=== PATIENT | female | born 2000 | race American Indian/Alaskan Native ===

== ENCOUNTER 2019-03-29 19:56 | Emergency (ER) | payer SELFPAY ==
[2019-03-29 21:18] LABS: HCG Qualitative,Urine Positive (Negative)
[2019-03-29 21:23] LABS: Bacteria,Urine 2+ /HPF (Negative); Bilirubin,Urine NEG (Negative); Blood,Urine NEG (Negative); Color,Urine Yellow (Yellow); Mucus,Urine 3+ /HPF; Protein,Urine <15 mg/dL mg/dL (Negative); Urobilinogen,Urine < 2.0 mg/dL (<2.0)
[2019-03-29 22:00] LABS: Basophils # (Auto) 0.1 K/mm3 (0.0-0.1); Basophils % (Auto) 0.9 % (0.0-1.8); Eosinophils # (Auto) 0.1 K/mm3 (0.0-0.4); Eosinophils % (Auto) 0.5 % (0.0-4.3); Hematocrit 39.1 % (30.3-42.9); Hemoglobin 12.5 gm/dl (10.1-14.3); Lymphocytes # (Auto) 3.2 K/mm3 (1.2-5.4); Lymphocytes % (Auto) 29.1 % (13.4-35.0); Mean Corpuscular HGB Conc 32 % (30-34); Mean Corpuscular Volume 85 fl (79-97); Monocytes # (Auto) 0.8 K/mm3 (0.0-0.8); Monocytes % (Auto) 7.4 % (0.0-7.3); Platelet Count 273 K/mm3 (140-440); Red Cell Distribution Width 13.9 % (13.2-15.2)
[2019-03-29 22:26] LABS: Alanine Aminotransferase 7 units/L (7-56); BUN/Creatinine Ratio 12; Blood Urea Nitrogen 11 mg/dL (7-17); Calcium 8.8 mg/dL (8.4-10.2); Hemolysis Index 3
--- NOTE | 2019-03-30 00:30 | Emergency Department Report ---
ED Female HPI - General Chief complaint: Abdominal Pain Stated complaint: ABD PAIN/DIARRHEA Time Seen by Provider: 03/30/19 00:15 Source: patient Mode of arrival: Ambulatory Limitations: No Limitations - History of Present Illness Initial comments: 18-year-old -Mong[place]ian female presents to the emergency room for lower abdominal pain 1 month. Patient admits to diarrhea admits to vaginal discharge and abdominal cramping. Patient reports her last menstrual. 02/19/2019. Patient does admit to having unprotected intercourse. Patient does not have a primary care provider. Denies any fever or chills or nausea no vomiting no shortness of breath no chest pain. She does not have a primary care provider. MD Complaint: vaginal discharge, pelvic pain Onset/Timin -: month(s) Location: suprapubic Radiation: non-radiating Severity: severe Quality: cramping Consistency: intermittent Improves with: none Worsens with: none Are you Now?: No Last Menstrual Period: 02/19/19 EDC: 11/26/19 Associated Symptoms: vaginal discharge, abdominal pain - Related Data Sexually active: Yes Previous Rx's Medication Instructions Recorded Last Taken Type Nitrofurantoin Coke/M-Cryst 100 mg PO Q12HR #14 capsule 03/30/19 Unknown Rx [Macrobid CAP] Vit-Fe Fumar-FA [ 1 tab PO QDAY #90 tablet 03/30/19 Unknown Rx Vitamin] Allergies Allergy/AdvReac Type Severity Reaction Status Date / Time No Known Allergies Allergy Unverified 03/29/19 20:16 ED Review of Systems ROS: Stated complaint: ABD PAIN/DIARRHEA Other details as noted in HPI ED Past Medical Hx - Past Medical History Previous Medical History?: No - Surgical History Past Surgical History?: No - Social History Smoking Status: Never Smoker Substance Use Type: None - Medications Home Medications: Home Medications Medication Instructions Recorded Confirmed Last Taken Type Nitrofurantoin Coke/M-Cryst 100 mg PO Q12HR #14 capsule 03/30/19 Unknown Rx [Macrobid CAP] Vit-Fe Fumar-FA [ 1 tab PO QDAY #90 tablet 03/30/19 Unknown Rx Vitamin] ED Physical Exam - General Limitations: No Limitations ED Course Vital Signs 03/29/19 03/29/19 20:05 20:14 Temperature 99 F 99 F Pulse Rate 88 88 Respiratory 16 18 Rate Blood Pressure 128/81 Blood Pressure 128/81 [Left] O2 Sat by Pulse 99 99 Oximetry ED Medical Decision Making - Lab Data Result diagrams: 03/29/19 21:27 03/29/19 21:27 - Radiology Data Radiology results: report reviewed Patient: CARLOS VALDIVIA MR#: [id number] : 2000 Acct:[id number] Age/Sex: 18 / F ADM Date: 03/29/19 Loc: ED Attending Dr: Ordering Physician: ARMEN CHEUNG Date of Service: 03/30/19 Procedure(s): US OB transvaginal Accession Number(s): [id number] cc: ARMEN CHEUNG ULTRASOUND OBSTETRIC twin INDICATION / CLINICAL INFORMATION: ABDOMEN PAIN; + PREG TEST. TECHNIQUE: Transabdominal and Transvaginal. Duplex ultrasound spectral technique was also performed through both ovaries. COMPARISON: None available. FINDINGS: GESTATIONAL SAC: 2 small suspected intrauterine gestational sacs. Gestational sac twin A measures 0.3 cm for estimated gestational age of 5 weeks 0 days. Second gestational sac twin B measures 0.29 cm with estimated gestational age of 5 weeks 1 day YOLK SAC: Not visualized EMBRYO/FETUS: Not yet visualized ADNEXA: Both ovaries appear within normal limits without cyst or mass. Right ovary measures 2.8 x 1.7 x 2.3 cm. Left ovary measures 2.6 x 2.0 x 2.2 cm. FREE FLUID: None. ADDITIONAL FINDINGS: Normal color Doppler and spectral waveforms are seen within both ovaries. IMPRESSION: 1. suspected twin intrauterine pregnancies with estimated gestational age of 5 weeks 1 day based on largest gestational sac measurement. Confirmation of viability is recommended with short- term follow-up ultrasound and beta hCG. Signer Name: Jose Mccarty MD Signed: 03/30/2019 4:01 AM Workstation Name: [id number] Transcribed By: TL Dictated By: Jose Mccarty MD Electronically Authenticated By: Jose Mccarty MD Signed Date/Time: 03/30/19 040 DD/ [id number] TD/TT: - Medical Decision Making 18-year-old -Mongol[place] female presents to the emergency room for lower abdominal pain 1 month. Patient admits to diarrhea admits to vaginal discharge and abdominal cramping. Patient reports her last menstrual. 02/19/2019. Patient does admit to having unprotected intercourse. Patient does not have a primary care provider. Denies any fever or chills or nausea no vomiting no shortness of breath no chest pain. She does not have a primary care provider. Critical care attestation.: If time is entered above; I have spent that time in minutes in the direct care of this critically ill patient, excluding procedure time. ED Disposition Clinical Impression: UTI (urinary tract infection) , twin Qualifiers: Multiple gestation type: unspecified Trimester: first trimester Qualified Code(s): O30.001 - Twin , unspecified number of placenta and unspecified number of amniotic sacs, first trimester Disposition: - TO HOME OR SELFCARE Is pt being admited?: No Does the pt Need Aspirin: No Condition: Stable Instructions: Abdominal Pain (ED) Additional Instructions: Complete her antibiotics as prescribed. Tylenol is only thing he can take for pain management. Increase her water intake. Please start taking her vitamins and follow up with the [facility] provider. I have listed several below for your convenience Prescriptions: Nitrofurantoin Coke/M-Cryst [Macrobid CAP] 100 mg PO Q12HR #14 capsule Vit-Fe Fumar-FA [ Vitamin] 1 tab PO QDAY #90 tablet Referrals: [facility] [Primary Care Provider] - 3-5 Days [facility] [Provider Group] - 3-5 Days [facility] [Provider Group] - 3-5 Days [facility] [Provider Group] - 3-5 Days Forms: Work/School Release Form(ED), Accompanied Note
--- NOTE | 2019-03-30 04:06 | Ultrasound Report ---
ULTRASOUND OBSTETRIC twin INDICATION / CLINICAL INFORMATION: ABDOMEN PAIN; + PREG TEST. TECHNIQUE: Transabdominal and Transvaginal. Duplex ultrasound spectral technique was also performed through both ovaries. COMPARISON: None available. FINDINGS: GESTATIONAL SAC: 2 small suspected intrauterine gestational sacs. Gestational sac twin A measures 0.3 cm for estimated gestational age of 5 weeks 0 days. Second gestational sac twin B measures 0.29 cm with estimated gestational age of 5 weeks 1 day YOLK SAC: Not visualized EMBRYO/FETUS: Not yet visualized ADNEXA: Both ovaries appear within normal limits without cyst or mass. Right ovary measures 2.8 x 1.7 x 2.3 cm. Left ovary measures 2.6 x 2.0 x 2.2 cm. FREE FLUID: None. ADDITIONAL FINDINGS: Normal color Doppler and spectral waveforms are seen within both ovaries. IMPRESSION: 1. suspected twin intrauterine pregnancies with estimated gestational age of 5 weeks 1 day based on largest gestational sac measurement. Confirmation of viability is recommended with short-term f ollow-up ultrasound and beta hCG. Signer Name: Jose Mccarty MD Signed: 03/30/2019 4:01 AM Workstation Name: [id number]
[2019-03-30 07:20] VITALS: BP 118/78
== END 2019-03-30 05:00 | disposition home or self-care (01) ==
LOC: ED 19:56
DX: O23.41 Unspecified infection of urinary tract in pregnancy, first trimester (principal); Z3A.01 Less than 8 weeks gestation of pregnancy; Z79.899 Other long term (current) drug therapy
CPT/HCPCS: 36415; 76801; 76802; 76817; 80053; 81001; 81025; 84702; 85025; 87076; 87086; 87186; 87210; 87591; 99284